=== PATIENT | female | born 1995 | race Caucasian/White ===

== ENCOUNTER 2017-11-16 07:18 | Emergency (ER) | payer OTHER ==
[~2017-11-16] VITALS: Ht 167.6 cm; Wt 64.4 kg
== END 2017-11-16 16:46 | disposition home or self-care (01) ==
LOC: ER 07:18
DX: N83.292 Other ovarian cyst, left side (principal)

== ENCOUNTER 2023-09-07 12:58 | Emergency (ER) | payer OTHER ==
[~2023-09-07] VITALS: Ht 162.6 cm; Wt 70.8 kg
[2023-09-07] MEDS ORDERED: PROZAC20 MG PO (13:54)
[2023-09-07] MEDS ORDERED: XULANE PATCH1 EACH TD (13:55)
[2023-09-07] MEDS ORDERED: KETOROLAC TROMETHAMINE 60 MG VIAL IM STA (14:55)
[2023-09-07 15:32] LABS: HEMATOCRIT 34.4 % (36.0-45.00); HEMOGLOBIN 11.5 g/dL (12.0-15.00); MEAN CELL VOLUME 85.3 fL (80.00-100.00); MEAN CORPUSCULAR HEMOGLOBIN 28.6 pg (27.00-32.0); MEAN CORPUSCULAR HGB CONC 33.5 g/dl (32.0-36.0); PLATELET COUNT 295 K/uL (150-450); RED BLOOD COUNT 4.04 M/uL (4.00-6.00); RED CELL DISTRIBUTION WIDTH 13.4 % (11.5-14.5)
[2023-09-07 15:43] LABS: CALCIUM 9.3 mg/dL (8.5-10.1); CREATININE SERUM 0.74 mg/dL (0.55-1.02); GFR 92.78; POTASSIUM 3.67 mEq/L (3.5-5.1)
[2023-09-07 16:52] LABS: PH,URINE 6.5 (5.0-8.0); URINE APPEARANCE Clear; URINE BILIRRUBIN Negative (NEGATIVE); URINE BLOOD Negative; URINE COLOR Yellow; URINE GLUCOSE Negative (NEGATIVE); URINE LEUKOCYTE Negative; URINE NITRATE Negative; URINE PROTEIN Negative (NEGATIVE); URINE UROBILINOGEN 0.2 E.U./dl
[2023-09-07 16:55] LABS: URINE BACTERIA 1150.1 uL (0.0-1933); URINE EPITHELIAL CELLS 8.8 uL (0.0-38.8); URINE RBC 54.6 uL (0.0-20.8); URINE WBC 16.8 uL (0.0-23.2)
[2023-09-07] MEDS ORDERED: METOCLOPRAMIDE HCL 5 MG/ML VIAL IV ONE (18:30)
[2023-09-07] MEDS ORDERED: FAMOtidine 10 MG/ML (4ML VIAL) IV PUSH ONE (18:30)
[2023-09-07] MEDS ORDERED: SUCRALFATE 1 G TABLET PO ONE (18:30)
[2023-09-07] MEDS ORDERED: HYOSCYAMINE SULFATE 0.125 MG TAB.SUBL SL ONE (18:30)
== END 2023-09-07 19:13 | disposition home or self-care (01) ==
LOC: ER 13:00
PROVIDERS: General Practice
DX: R10.30 Lower abdominal pain, unspecified (principal); D25.9 Leiomyoma of uterus, unspecified; N83.201 Unspecified ovarian cyst, right side